=== PATIENT | female | born 1935 | race Caucasian/White ===

== ENCOUNTER 2021-12-02 08:56 | Emergency (ER) | payer MEDICARE, OTHER ==
[~2021-12-02] VITALS: Ht 152.4 cm; Wt 80.3 kg
[2021-12-02] MEDS ORDERED: PROPRANOLOL HCL20 MG PO (09:11)
[2021-12-02] MEDS ORDERED: PRIMIDONE50 MG PO (09:12)
[2021-12-02] MEDS ORDERED: LEVOTHYROXINE88 MCG PO (09:12)
== END 2021-12-02 11:27 | disposition home or self-care (01) ==
LOC: ED 08:56
DX: S32.019A Unspecified fracture of first lumbar vertebra, initial encounter for closed fracture (principal); S32.029A Unspecified fracture of second lumbar vertebra, initial encounter for closed fracture; S32.039A Unspecified fracture of third lumbar vertebra, initial encounter for closed fracture; S32.049A Unspecified fracture of fourth lumbar vertebra, initial encounter for closed fracture; S00.03XA Contusion of scalp, initial encounter; E03.9 Hypothyroidism, unspecified; J45.909 Unspecified asthma, uncomplicated; E66.9 Obesity, unspecified; Z88.0 Allergy status to penicillin; Z91.018 Allergy to other foods; Z88.8 Allergy status to other drugs, medicaments and biological substances; Z79.899 Other long term (current) drug therapy; W18.30XA Fall on same level, unspecified, initial encounter
CPT/HCPCS: 70450; 72100; 72125; 99284-25

== ENCOUNTER 2022-11-14 10:08 | Emergency (ER) | payer MEDICARE, OTHER ==
[~2022-11-14] VITALS: Ht 152.4 cm; Wt 81.7 kg
[~2022-11-14 10:08] MED LIST: LEVOTHYROXINE88 MCG PO; PRIMIDONE50 MG PO; PROPRANOLOL HCL20 MG PO
[2022-11-14] MEDS ORDERED: VENTOLIN HFA18 GM INH ×2 (10:31→11:54)
[2022-11-14] MEDS ORDERED: PREDNISONE20 MG PO (11:54)
[2022-11-14] MEDS ORDERED: ROBITUSSIN COU237 M2 PO (11:54)
== END 2022-11-14 13:55 | disposition home or self-care (01) ==
LOC: ED 10:08
DX: J98.9 Respiratory disorder, unspecified (principal); E03.9 Hypothyroidism, unspecified; J45.909 Unspecified asthma, uncomplicated; Z20.822 Contact with and (suspected) exposure to COVID-19; Z88.0 Allergy status to penicillin; Z88.8 Allergy status to other drugs, medicaments and biological substances; Z91.010 Allergy to peanuts; Z79.899 Other long term (current) drug therapy
CPT/HCPCS: 87502; 94640; 99283-25; C9803; U0003